=== PATIENT | male | born 1975 | race Caucasian/White ===

== ENCOUNTER 2017-06-20 15:57 | Emergency (ER) | payer BC ==
[2017-06-20 16:45] VITALS: BP 136/93; PULSE 82; RESP 16; TEMP 97.9
[2017-06-20] MEDS ORDERED: IBUPROFEN 600 MG TAB PO STA (17:12)
--- NOTE | 2017-06-20 17:43 | ED ---
Wound/Laceration HPI - General Chief Complaint: Wound/Laceration Stated Complaint: R leg laceration Time Seen by Provider: 06/20/17 17:12 Source: patient Mode of arrival: ambulatory Limitations: no limitations - History of Present Illness Initial Comments: 42-year-old male patient presented to emergency department today for evaluation of an injury to his right lower leg. Patient states couple hours ago he was doing some jesus, states he was carrying a bundle of plywood when one of the pieces of wood struck him in the leg causing an injury. Patient states he did have some bleeding, states area is painful. He was unsure if he needed stitches or not. He denies any difficulty and bleeding. Denies any numbness or tingling to the leg or foot. Denies falling down or any other injuries. Patient denies any headache, neck pain, back pain, chest pain, shortness of breath, dizziness, weakness, abdominal pain, nausea, vomiting, or difficulties with bowel movements or urination. Patient had tetanus vaccine about a year ago. - Related Data Previous Rx's Medication Instructions Recorded Hydrocodone/Acetaminophen [[place] 1 each PO Q4HR PRN #20 tab 04/25/16 5-325] Ibuprofen [Motrin] 800 mg PO Q8HR PRN #30 tab 04/25/16 Cephalexin [Keflex] 500 mg PO Q6HR #20 cap 06/20/17 Allergies Allergy/AdvReac Type Severity Reaction Status Date / Time onion Allergy Nausea & Verified 06/20/17 16:45 Vomiting tramadol HCl [From Ultram] Allergy Confusion Verified 06/20/17 16:45 Review of Systems ROS Statement: Those systems with pertinent positive or pertinent negative responses have been documented in the HPI. ROS Other: All systems not noted in ROS Statement are negative. Past Medical History Past Medical History: No Reported History History of Any Multi-Drug Resistant Organisms: None Reported Past Surgical History: Orthopedic Surgery Additional Past Surgical History / Comment(s): facial/ orbital shoulder rotator cuff Past Psychological History: No Psychological Hx Reported Smoking Status: Never smoker Past Alcohol Use History: Occasional Past Drug Use History: None Reported General Exam Limitations: no limitations General appearance: alert, in no apparent distress Eye exam: Present: normal appearance, PERRL, EOMI. Absent: scleral icterus, conjunctival injection, periorbital swelling Respiratory exam: Present: normal lung sounds bilaterally. Absent: respiratory distress, wheezes, rales, rhonchi, stridor Cardiovascular Exam: Present: regular rate, normal rhythm, normal heart sounds. Absent: systolic murmur, diastolic murmur, rubs, gallop, clicks Extremities exam: Present: full ROM, tenderness (Tenderness surrounding the puncture sites on the anterior right mid lower leg.), normal capillary refill, other (There is a puncture wound to the right mid lower leg. Bleeding is controlled. Skin is otherwise pink, warm, and dry. Cap refill less than 3 seconds. No bony tenderness. Pedal and posttibial pulses are 2+ and intact.). Absent: pedal edema, joint swelling, calf tenderness Neurological exam: Present: alert, oriented X3, CN II-XII intact Psychiatric exam: Present: normal affect, normal mood Skin exam: Present: warm, dry, intact, normal color. Absent: rash Course Vital Signs 06/20/17 16:42 Temperature 97.9 F Pulse Rate 82 Respiratory 16 Rate Blood Pressure 136/93 O2 Sat by Pulse 98 Oximetry Medical Decision Making - Medical Decision Making 42-year-old male patient presented for evaluation of right lower leg injury. Physical examination did reveal a puncture wound to the right lower leg. Area was cleansed and irrigated. X-ray was obtained to rule out foreign body. There is no foreign body evident. The tib-fib were negative for any acute fracture. Patient was put on antibiotics for prevention of infection. He was instructed to follow-up with his primary care physician for recheck in 1-2 days. He is instructed to return here immediately for any new, worsening, or concerning symptoms. He verbalizes understanding and agrees this plan. - Radiology Data Radiology results: report reviewed, image reviewed X-ray tib-fib shows no acute fracture or dislocation the right tibia or fibula. The right knee and ankle joint appears within normal limits. Small amount of gas as possible in the mid calf medially. No radiopaque foreign body is identified. Impression by Dr. Crow shows no radiopaque foreign bodies identified. There could be a small amount of soft tissue gas identified in the medial calf. Disposition Clinical Impression: Puncture wound Disposition: HOME SELF-CARE Condition: Good Instructions: Puncture Wound (ED) Additional Instructions: Keep wound clean and dry. Take antibiotics as directed. Follow-up to primary care physician for recheck in 1-2 days. Return here immediately for any new, worsening, or concerning symptoms. Prescriptions: Cephalexin [Keflex] 500 mg PO Q6HR #20 cap Referrals: Stephen Segura MD [Primary Care Provider] - 1-2 days Time of Disposition: 17:43
--- NOTE | 2017-06-20 18:06 | XR ---
EXAMINATION TYPE: XR tibia fibula RT DATE OF EXAM: 06/20/2017 CLINICAL HISTORY: Possible foreign body with pain. TECHNIQUE: 7 views of the right leg are obtained. COMPARISON: None. FINDINGS: There is no acute fracture or dislocation seen in the right tibia or fibula. The right kn ee and ankle joints appear within normal limits. Small amount of gas is possible in the mid calf medi ally. No radiopaque foreign body is identified. IMPRESSION: No radiopaque foreign bodies identified. There could be a small amount of soft tissue gas identified in the medial calf.
== END 2017-06-20 17:55 | disposition home or self-care (01) ==
LOC: EC 15:57
DX: S81.831A Puncture wound without foreign body, right lower leg, initial encounter (principal); Z88.6 Allergy status to analgesic agent; Z91.018 Allergy to other foods; W22.8XXA Striking against or struck by other objects, initial encounter; Y93.89 Activity, other specified
CPT/HCPCS: 99283

== ENCOUNTER 2018-10-10 08:37 | Emergency (ER) | payer BC ==
[2018-10-10] MEDS ORDERED: SODIUM CHLORIDE 0.9% 1,000 ML IV STA (08:56)
[2018-10-10] MEDS ORDERED: diphenhydrAMINE 50 MG/ML 1 ML VIAL IVP STA (08:57)
[2018-10-10] MEDS ORDERED: METOCLOPRAMIDE 5 MG/ML 2 ML VIAL IVP STA (08:57)
--- NOTE | 2018-10-10 08:58 | ED ---
General Adult HPI - General Chief complaint: Neuro Symptoms/Deficit Stated complaint: headache Time Seen by Provider: 10/10/18 08:46 Source: patient, family, RN notes reviewed, old records reviewed Mode of arrival: wheelchair Limitations: no limitations - History of Present Illness Initial comments: 43-year-old male presenting with chief complaint of severe headache. Patient does have headache history, follows with urology, has headache frequency over proximally 3 monthly. Today's headache is significantly more severe, and different in character from his baseline headache. He does also have history of what patient's describes as thunderclap headaches. No history of aneurysm in this patient he does have history of aneurysm in his family. He is presenting with severe right-sided headache, lethargy. His also noted left -sided facial droop and patient has some left arm weakness as well. No CVA history. Detailed history is difficult secondary to patient's severe headache. It is known that the patient went to bed with a headache, and woke at 7:30 with severe headache and no complaints. - Related Data Home Medications Medication Instructions Recorded Confirmed Butalb/APAP/Caff 50-325-40Mg 1 tab PO Q4H PRN 10/10/18 10/10/18 [Fioricet 50-325-40] Galcanezumab-Gnlm [Emgality] 120 mg SQ Q30D 10/10/18 10/10/18 Maxalt (Unknown Dose) 1 tab PO ONCE 10/10/18 10/10/18 Allergies Allergy/AdvReac Type Severity Reaction Status Date / Time onion AdvReac Nausea & Verified 10/10/18 08:59 Vomiting tramadol HCl [From Ultram] AdvReac Confusion Verified 10/10/18 08:59 Review of Systems ROS Statement: Those systems with pertinent positive or pertinent negative responses have been documented in the HPI. ROS Other: All systems not noted in ROS Statement are negative. Past Medical History Past Medical History: No Reported History Additional Past Medical History / Comment(s): migraines History of Any Multi-Drug Resistant Organisms: None Reported Past Surgical History: Orthopedic Surgery Additional Past Surgical History / Comment(s): facial/ orbital shoulder rotator cuff Past Psychological History: No Psychological Hx Reported Smoking Status: Never smoker Past Alcohol Use History: Occasional Past Drug Use History: None Reported General Exam Limitations: no limitations General appearance: alert, in no apparent distress Head exam: Present: atraumatic, normocephalic Eye exam: Present: normal appearance, PERRL Neck exam: Present: normal inspection Respiratory exam: Present: normal lung sounds bilaterally. Absent: respiratory distress Cardiovascular Exam: Present: regular rate, normal rhythm GI/Abdominal exam: Present: soft. Absent: distended, tenderness Extremities exam: Present: normal inspection, normal capillary refill. Absent: pedal edema Neurological exam: Present: alert, motor sensory deficit (Left upper extremity drift, left-sided facial droop, mild dysarthria) Skin exam: Present: warm, dry, intact. Absent: cyanosis, diaphoretic Course Vital Signs 10/10/18 10/10/18 10/10/18 08:38 08:45 09:00 Temperature 97.8 F Pulse Rate 76 62 57 L Respiratory 18 16 16 Rate Blood Pressure 99/71 158/100 142/99 O2 Sat by Pulse 98 93 L 95 Oximetry 10/10/18 10/10/18 10/10/18 09:15 09:30 09:45 Temperature Pulse Rate 56 L 64 58 L Respiratory 16 16 16 Rate Blood Pressure 147/105 145/125 147/94 O2 Sat by Pulse 99 94 L 98 Oximetry 10/10/18 10/10/18 10:00 10:15 Temperature Pulse Rate 60 64 Respiratory 15 16 Rate Blood Pressure 134/96 141/104 O2 Sat by Pulse 98 100 Oximetry EKG Findings - EKG Comments: EKG Findings:: EKG: Sinus rhythm, first-degree AV block, significant artifact secondary to patient tremor, rate of 63 TN interval 234, QRS duration 86, QTC [address] segment changes, no definitive signs of ischemia Medical Decision Making - Medical Decision Making 43-year-old male history of migraine headache presenting with severe headache, right-sided, with left arm drift and facial droop. Patient is evaluated as a code stroke in the emergency department. CT, CT angiography is obtained. CT negative for intracranial hemorrhage or mass effect, CT angiography is negative for aneurysm, negative for acute bleed or stenosis. Patient given Reglan, Benadryl, and Dilaudid. Chest x-ray obtained, negative for focal pneumonia or acute findings. Patient has normal CBC, normal CMP, negative troponin. I did discuss case with the stroke neurologist Dr. Estrada, CT reviewed, likely atypical migraine, does recommend aspirin. On reevaluation, patient feeling significantly better, focal findings are completely resolved. Patient headache is improved, not as debilitating, able to get a more detailed history. Patient does state that 15 years ago he had severe migraine with concern for CVA and was diagnosed with atypical migraine at that time. He has not had a headache this severe in the past 15 years. He does follow regularly with neurology. He is feeling better and has a nonfocal neurologic exam. He is ready for discharge, will follow-up with his neurologist as an outpatient. Will take 81 mg aspirin daily. Return with worsening or changing symptoms. - Lab Data Result diagrams: 10/10/18 08:55 10/10/18 08:55 Lab Results 10/10/18 10/10/18 10/10/18 Range/Units 08:55 08:55 08:55 WBC 5.6 (3.8-10.6) k/uL RBC 5.63 (4.30-5.90) m/uL Hgb 16.5 (13.0-17.5) gm/dL Hct 49.2 (39.0-53.0) % MCV 87.4 (80.0-100.0) fL MCH 29.2 (25.0-35.0) pg MCHC 33.5 (31.0-37.0) g/dL RDW 12.9 (11.5-15.5) % Plt Count 296 (150-450) k/uL Neutrophils % 50 % Lymphocytes % 36 % Monocytes % 9 % Eosinophils % 2 % Basophils % 1 % Neutrophils # 2.8 (1.3-7.7) k/uL Lymphocytes # 2.0 (1.0-4.8) k/uL Monocytes # 0.5 (0-1.0) k/uL Eosinophils # 0.1 (0-0.7) k/uL Basophils # 0.0 (0-0.2) k/uL PT 10.1 (9.0-12.0) sec INR 0.9 (<1.2) APTT 24.9 (22.0-30.0) sec Sodium 142 (137-145) mmol/L Potassium 4.3 (3.5-5.1) mmol/L Chloride 105 (98-107) mmol/L Carbon Dioxide 27 (22-30) mmol/L Anion Gap 10 mmol/L BUN 18 (9-20) mg/dL Creatinine 1.02 (0.66-1.25) mg/dL Est GFR (CKD-EPI)AfAm >90 (>60 ml/min/1.73 sqM) Est GFR (CKD-EPI)NonAf >90 (>60 ml/min/1.73 sqM) Glucose 108 H (74-99) mg/dL Calcium 9.6 (8.4-10.2) mg/dL Total Bilirubin 1.2 (0.2-1.3) mg/dL AST 38 (17-59) U/L ALT 73 H (21-72) U/L Alkaline Phosphatase 68 (38-126) U/L Total Creatine Kinase (55-170) U/L CK-MB (CK-2) (0.0-2.4) ng/mL CK-MB (CK-2) Rel Index Troponin I (0.000-0.034) ng/mL Total Protein 7.8 (6.3-8.2) g/dL Albumin 4.5 (3.5-5.0) g/dL 10/10/18 Range/Units 08:58 WBC (3.8-10.6) k/uL RBC (4.30-5.90) m/uL Hgb (13.0-17.5) gm/dL Hct (39.0-53.0) % MCV (80.0-100.0) fL MCH (25.0-35.0) pg MCHC (31.0-37.0) g/dL RDW (11.5-15.5) % Plt Count (150-450) k/uL Neutrophils % % Lymphocytes % % Monocytes % % Eosinophils % % Basophils % % Neutrophils # (1.3-7.7) k/uL Lymphocytes # (1.0-4.8) k/uL Monocytes # (0-1.0) k/uL Eosinophils # (0-0.7) k/uL Basophils # (0-0.2) k/uL PT (9.0-12.0) sec INR (<1.2) APTT (22.0-30.0) sec Sodium (137-145) mmol/L Potassium (3.5-5.1) mmol/L Chloride (98-107) mmol/L Carbon Dioxide (22-30) mmol/L Anion Gap mmol/L BUN (9-20) mg/dL Creatinine (0.66-1.25) mg/dL Est GFR (CKD-EPI)AfAm (>60 ml/min/1.73 sqM) Est GFR (CKD-EPI)NonAf (>60 ml/min/1.73 sqM) Glucose (74-99) mg/dL Calcium (8.4-10.2) mg/dL Total Bilirubin (0.2-1.3) mg/dL AST (17-59) U/L ALT (21-72) U/L Alkaline Phosphatase (38-126) U/L Total Creatine Kinase 99 (55-170) U/L CK-MB (CK-2) 0.4 (0.0-2.4) ng/mL CK-MB (CK-2) Rel Index 0.4 Troponin I <0.012 (0.000-0.034) ng/mL Total Protein (6.3-8.2) g/dL Albumin (3.5-5.0) g/dL Disposition Clinical Impression: Atypical migraine Disposition: HOME SELF-CARE Condition: Fair Instructions (If sedation given, give patient instructions): Migraine Headache (ED), Acute Headache (ED) Is patient prescribed a controlled substance at d/c from ED?: No Referrals: Stephen Segura MD [Primary Care Provider] - 1-2 days Nahun Lambert DO [STAFF PHYSICIAN] - 1-2 days Decision to Admit Reason: Admit from EC Decision Date: 10/10/18 Decision Time: 11:28
--- NOTE | 2018-10-10 09:20 | CT ---
EXAMINATION TYPE: CT brain wo con DATE OF EXAM: 10/10/2018 COMPARISON: 06/17/2010 HISTORY: Code stroke. Neuro deficits. Unenhanced CT of the brain was performed. The ventricles, basal cisterns and sulci overlying the cerebral convexities demonstrate a normal appe arance. There is no evidence for intracranial hemorrhage or sulcal effacement. No mass effects are seen. Osseous calvarium is intact. If symptoms persist consider MRI as clinically warranted. IMPRESSION: 1. No acute intracranial process is seen at this time.
[2018-10-10 09:40] LABS: Basophils % (A) 1 %; Eosinophils # (A) 0.1 k/uL (0-0.7); Eosinophils % (A) 2 %; HCT 49.2 % (39.0-53.0); HGB 16.5 gm/dL (13.0-17.5); Lymphocytes % (A) 36 %; MCH 29.2 pg (25.0-35.0); MCHC 33.5 g/dL (31.0-37.0); MCV 87.4 fL (80.0-100.0); Mean Platelet Volume 6.4; Monocytes # (A) 0.5 k/uL (0-1.0); Monocytes % (A) 9 %; Neutrophils # (A) 2.8 k/uL (1.3-7.7); Neutrophils % (A) 50 %; Platelet Count 296 k/uL (150-450); RBC 5.63 m/uL (4.30-5.90); RDW 12.9 % (11.5-15.5); WBC 5.6 k/uL (3.8-10.6)
[2018-10-10 09:42] VITALS: PULSE 64
[2018-10-10 09:45] LABS: INR 0.9 (<1.2); Partial Thromboplastin Time 24.9 sec (22.0-30.0); Prothrombin Time 10.1 sec (9.0-12.0)
[2018-10-10] MEDS ORDERED: HYDROmorphone 1 MG/ML 1 ML SYRINGE IVP STA (09:46)
[2018-10-10 09:49] LABS: ALT 73 U/L (21-72); AST 38 U/L (17-59); Albumin 4.5 g/dL (3.5-5.0); Alkaline Phosphatase 68 U/L (38-126); Anion Gap 10 mmol/L; Blood Urea Nitrogen 18 mg/dL (9-20); Calcium 9.6 mg/dL (8.4-10.2); Carbon Dioxide 27 mmol/L (22-30); Chloride 105 mmol/L (98-107); Glucose 108 mg/dL (74-99); Potassium 4.3 mmol/L (3.5-5.1); Sodium 142 mmol/L (137-145); Total Bilirubin 1.2 mg/dL (0.2-1.3); Total Protein 7.8 g/dL (6.3-8.2)
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
[2018-10-10 09:56] LABS: Creatine Kinase 99 U/L (55-170)
[2018-10-10 10:09] LABS: Creatine Kinase MB 0.4 ng/mL (0.0-2.4); Troponin I <0.012 ng/mL (0.000-0.034)
--- NOTE | 2018-10-10 10:11 | XR ---
EXAMINATION TYPE: XR chest 1V portable DATE OF EXAM: 10/10/2018 COMPARISON: 06/17/2010 HISTORY: Chest pain TECHNIQUE: Single frontal view of the chest is obtained. FINDINGS: There is no focal air space opacity, pleural effusion, or pneumothorax seen. The cardiac silhouette size is within normal limits. The osseous structures are intact. IMPRESSION: 1. No acute process.
[2018-10-10 11:35] VITALS: BP 128/97; RESP 18
[2018-10-10 13:38] VITALS: TEMP 98
== END 2018-10-10 11:32 | disposition home or self-care (01) ==
LOC: EC 08:37
DX: G43.009 Migraine without aura, not intractable, without status migrainosus (principal); R29.810 Facial weakness; R47.1 Dysarthria and anarthria; R53.83 Other fatigue; Z88.5 Allergy status to narcotic agent; Z91.018 Allergy to other foods; Z79.899 Other long term (current) drug therapy; Z98.890 Other specified postprocedural states; Z82.49 Family history of ischemic heart disease and other diseases of the circulatory system
CPT/HCPCS: 36415; 93005; 80053; 82550; 82553; 84484; 85025; 85610; 85730; 71045; 70496; 70450; 70498; 99285; 96374; 96375 ×2; 96361; J1200; J2765; J1170; Q9967

== ENCOUNTER → 2018-12-23 | Outpatient (CLI) | payer BC ==
--- NOTE | 2018-12-23 11:42 | CT ---
EXAMINATION TYPE: CT angio chest DATE OF EXAM: 12/23/2018 COMPARISON: None HISTORY: Hypertension, Family history of heart disease/aneurysm CT DLP: 1019 mGycm CONTRAST: CTA thoracic aorta with 3-D reconstruction is performed and without and with IV Contrast, patient inj ected with 100 ml mL of Isovue 370. Contrast CTA of the thoracic aorta was performed from the lung apex through the upper abdomen. 3D re construction imaging obtained at a separate workstation. CT Chest: THORACIC AORTA: No evidence for thoracic aortic aneurysm. Mild atheromatous changes seen. There is n o evidence for dissection or periaortic collection. LUNGS: The lungs are clear and free of infiltrate or atelectasis. No pulmonary nodule or mass is det ected. No pleural effusion or CT evidence of interstitial lung disease. MEDIASTINUM: No evidence for mediastinal hematoma. The heart is not enlarged. No evidence for med iastinal mass or adenopathy. HILAR STRUCTURES: No evidence for mass. No hilar adenopathy is appreciated. OTHER: No significant abnormality. IMPRESSION- No evidence for thoracic aortic aneurysm or any other significant abnormality.
== END | disposition home or self-care (01) ==
LOC: RADCTMAIN 07:01
PROVIDERS: ATTEND Internal Medicine Cardiovascular Disease
DX: I10 Essential (primary) hypertension (principal); Z82.49 Family history of ischemic heart disease and other diseases of the circulatory system
CPT/HCPCS: 71275; Q9967

== ENCOUNTER → 2019-11-10 | Outpatient (CLI) | payer BC ==
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
== END | disposition home or self-care (01) ==
LOC: RADMRIMAIN 19:11
PROVIDERS: ATTEND Psychiatry & Neurology Neurology
DX: R51 Headache (principal); R47.81 Slurred speech; R53.1 Weakness; R11.0 Nausea; R26.81 Unsteadiness on feet; J32.9 Chronic sinusitis, unspecified
CPT/HCPCS: 70544; 70549; 70553; A9585

== ENCOUNTER 2020-09-22 16:21 | Emergency (ER) | payer OTHER, BC ==
[2020-09-22 16:29] VITALS: TEMP 97.5
[2020-09-22] MEDS ORDERED: Acetaminophen-Codeine 300-30mg TAB PO STA (16:44)
[2020-09-22] MEDS ORDERED: LIDOCAINE 1% INJ 10MG/ML (20 ML MDV) SQ ONE (16:44)
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
--- NOTE | 2020-09-22 17:05 | XR ---
EXAMINATION TYPE: XR hand complete RT DATE OF EXAM: 09/22/2020 COMPARISON: NONE HISTORY: Pain. Injury. TECHNIQUE: 3 views FINDINGS: Metacarpals appear intact. I see no fracture nor dislocation. Carpal bones are intact. Radi ocarpal joint appears normal. IMPRESSION: Negative right hand exam. No fracture seen.
[2020-09-22 17:56] VITALS: BP 127/79; PULSE 67; RESP 16
== END 2020-09-22 17:59 | disposition home or self-care (01) ==
LOC: EC 16:21
DX: S61.411A Laceration without foreign body of right hand, initial encounter (principal); Z91.018 Allergy to other foods; Z88.6 Allergy status to analgesic agent; G43.909 Migraine, unspecified, not intractable, without status migrainosus; Z79.899 Other long term (current) drug therapy; V47.5XXA Car driver injured in collision with fixed or stationary object in traffic accident, initial encounter; Y92.481 Parking lot as the place of occurrence of the external cause; Y93.89 Activity, other specified
CPT/HCPCS: 73130; 99284; 12001; J2001

== ENCOUNTER 2021-05-01 14:27 | Emergency (ER) | payer BC, OTHER ==
[2021-05-01 16:23] VITALS: RESP 18
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
--- NOTE | 2021-05-01 17:04 | XR ---
PROCEDURE: XR femur LT - 4V DATE AND TIME: 05/01/2021 4:57 PM CLINICAL INDICATION: Pain; crush injury TECHNIQUE: Department protocol COMPARISON: None FINDINGS: There is no fracture or malalignment. The soft tissues are unremarkable. IMPRESSION: No acute process.
[2021-05-01 17:41] VITALS: BP 128/83; PULSE 71; TEMP 98.8
== END 2021-05-01 17:17 | disposition home or self-care (01) ==
LOC: EC 14:27
DX: S80.12XA Contusion of left lower leg, initial encounter (principal); Z88.1 Allergy status to other antibiotic agents; W20.8XXA Other cause of strike by thrown, projected or falling object, initial encounter
CPT/HCPCS: 99284

== ENCOUNTER → 2024-08-02 | Outpatient (CLI) | payer OTHER ==
--- NOTE | 2024-08-02 15:25 | XR ---
EXAMINATION TYPE: XR ankle complete LT, XR tibia fibula LT, XR foot complete LT DATE OF EXAM: 08/02/2024 2:41 PM COMPARISON: None CLINICAL INDICATION: Male, 49 years old with history of M79.662 PAIN IN LEFT LOWER LEG S93.402A S93.6 02A; [facility], pain TECHNIQUE: XR ankle complete LT, XR tibia fibula LT, XR foot complete LT; 2 views of the leg 3 views of the foot 3 views of the ankle FINDINGS: There is no evidence of acute osseous pathology. No evidence of subluxation or dislocation. Kager's fat pad is intact. Mild soft tissue swelling around the ankle. No radiopaque foreign bodies are ident ified. The tibia and fibula and bones of the foot appear intact. IMPRESSION: 1. No evidence of acute fracture. 2. Subcutaneous swelling around the ankle likely secondary to underlying soft tissue injury. [facility], , 08/02/2024 3:22 PM
== END | disposition home or self-care (01) ==
LOC: RADXRMAIN 14:25
PROVIDERS: ATTEND Emergency Medicine
DX: S93.402A Sprain of unspecified ligament of left ankle, initial encounter (principal); S93.602A Unspecified sprain of left foot, initial encounter; M25.473 Effusion, unspecified ankle

== ENCOUNTER → 2024-08-09 | Outpatient (CLI) | payer OTHER ==
--- NOTE | 2024-08-09 11:24 | XR ---
EXAMINATION TYPE: XR ankle complete LT, XR tibia fibula LT, XR foot complete LT DATE OF EXAM: 08/09/2024 11:10 AM COMPARISON: None CLINICAL INDICATION: Male, 49 years old with history of M79.662 PAIN IN LOWER LEFT LEG, pain TECHNIQUE: XR ankle complete LT, XR tibia fibula LT, XR foot complete LT; 3 views of the ankle, 2 views of the tibia and fibula 3 views of the foot, FINDINGS: There is no evidence of acute osseous pathology. No evidence of subluxation or dislocation. Kager's fat pad is intact. Mild soft tissue swelling around the ankle. No radiopaque foreign bodies are ident ified. The tibia and fibula appear intact. IMPRESSION: There remains no evidence of fracture. There may be mild soft tissue swelling around the ankle. [facility], , 08/09/2024 11:21 AM
== END | disposition home or self-care (01) ==
LOC: RADXRMAIN 10:51
PROVIDERS: ATTEND Emergency Medicine
DX: S93.402D Sprain of unspecified ligament of left ankle, subsequent encounter (principal); S93.602D Unspecified sprain of left foot, subsequent encounter; X58.XXXD Exposure to other specified factors, subsequent encounter

== ENCOUNTER → 2024-08-21 | Outpatient (CLI) | payer OTHER ==
--- NOTE | 2024-08-29 08:54 | MR ---
EXAMINATION TYPE: MR ankle LT wo con, MR foot LT wo con DATE OF EXAM: 08/21/2024 10:15 PM COMPARISON: Radiograph 08/09/2024 CLINICAL INDICATION: Male, 49 years old with history of S93.402D, S93.602D, Left Lower Odw-Picav-Ggzy pain and swelling since patient twisted ankle/foot stepping in a trench and he heard a snap TECHNIQUE: Multiplanar, multisequence images of the ankle and foot were obtained without IV contrast. FINDINGS: ANKLE: Generalized soft tissue swelling especially overlying the medial and lateral aspects and extending in to the medial hindfoot and dorsolateral midfoot. The talar dome and subtalar joint are intact. Small effusion in the tibiotalar and posterior subtalar joints. No acute or healing fracture is seen. Smooth delineation to the Achilles tendon with trace retrocalcaneal bursal effusion. The origin of th e plantar fascia is intact. Preserved signal within the sinus Tarsi. The tarsal tunnel is clear. The syndesmosis and anterior extensor tendons appear intact. The ATFL, PTFL, and CFL appear intact. There is moderate fluid along the peroneal tendons with a longitudinal split tear of peroneus brevis extending from the malleolus spanning just under 2 cm, refer to axial image 23. The medial flexor tendons and deltoid spring ligament complex appear intact. Minimal edema within the flexor hallucis longus muscle belly. FOOT: There is moderate to severe osteoarthritic change at the first MTP joint. Prominent reactive subchond ral marrow signal change and some irregularity of the subchondral bone along the metatarsal head. No acute or healing fracture. The Lisfranc ligament is visualized and intact. No other significant soft tissue abnormality is seen. IMPRESSION: ANKLE: 1. Generalized subcutaneous soft tissue swelling. No acute or healing fracture is seen. 2. Longitudinal split tear of the peroneus brevis extending from the malleolus down, spanning just un alesha 2 cm. Associated tenosynovitis. 3. Some minimal edema within the flexor hallucis longus muscle belly could be reactive to altered bio mechanics or could represent a mild muscle strain. FOOT: 4. Moderate to severe focal osteoarthritic change at the first MTP joint. 5. Otherwise, no acute abnormality is identified. [facility], , 08/29/2024 8:51 AM
== END | disposition home or self-care (01) ==
LOC: RADMRIMAIN 20:45
PROVIDERS: ATTEND Emergency Medicine
DX: S93.402D Sprain of unspecified ligament of left ankle, subsequent encounter (principal); S93.602D Unspecified sprain of left foot, subsequent encounter; M65.972 Unspecified synovitis and tenosynovitis, left ankle and foot; R60.0 Localized edema

== ENCOUNTER 2024-09-04 02:59 | Emergency (ER) | payer BC ==
[2024-09-04 03:06] VITALS: BP 185/124; PULSE 88; RESP 18; TEMP 98.1
--- NOTE | 2024-09-04 03:40 | ED ---
Extremity Problem HPI - General Chief complaint: Extremity Problem,Nontraumatic Stated complaint: left leg tingling Time Seen by Provider: 09/04/24 03:40 Source: patient Mode of arrival: ambulatory Limitations: no limitations - History of Present Illness Initial comments: This is a 49-year-old male presenting to the emergency department for complaint of left leg paresthesias that have been worsening over the past 2 hours. Patient states that he had an injury to his left foot on 08/01/2024 resulting in ligamentous injury and was informed by senior talent acquisition specialist to report to emergency department if he has worsening pain or paresthesias. States that he is noticed edema and erythema of the left calf. He denies chest pain, shortness of breath, or palpitations. - Related Data Home Medications Medication Instructions Recorded Confirmed Galcanezumab-Gnlm [Emgality] 120 mg SQ Q30D 10/10/18 09/22/20 Lisinopril-Hctz 10-12.5 mg 1 tab PO DAILY 09/22/20 09/22/20 [Zestoretic 10-12.5] OXcarbazepine [Trileptal] 75 - 150 mg PO HS 09/22/20 09/22/20 Ubrogepant [Ubrelvy] 50 mg PO BID PRN 09/22/20 09/22/20 Allergies Allergy/AdvReac Type Severity Reaction Status Date / Time onion AdvReac Nausea & Verified 09/04/24 03:06 Vomiting tramadol HCl [From Ultram] AdvReac Confusion Verified 09/04/24 03:06 Review of Systems ROS Statement: Those systems with pertinent positive or pertinent negative responses have been documented in the HPI. ROS Other: All systems not noted in ROS Statement are negative. Past Medical History Past Medical History: No Reported History Additional Past Medical History / Comment(s): migraines History of Any Multi-Drug Resistant Organisms: None Reported Past Surgical History: Orthopedic Surgery Additional Past Surgical History / Comment(s): facial/ orbital shoulder rotator cuff Past Psychological History: No Psychological Hx Reported Smoking Status: Never smoker Past Alcohol Use History: Rare Past Drug Use History: Marijuana General Exam - General Exam Comments Initial Comments: Visual Physical Exam Vital signs reviewed General: Well-appearing, nontoxic, no acute distress. Head: Normocephalic, atraumatic Eyes: PERRLA, EOMI ENT: Airway patent Chest: Nonlabored breathing Skin: No visual rash, normal skin tone Neuro: Alert and oriented 3 Musculoskeletal: No gross abnormalities Limitations: no limitations Course Vital Signs 09/04/24 03:03 Temperature 98.1 F Pulse Rate 88 Respiratory 18 Rate Blood Pressure 185/124 O2 Sat by Pulse 99 Oximetry Medical Decision Making - Medical Decision Making I completed the quick note portion of this chart signed Yocasta Lindsay PA-C Patient is informed that ultrasound will be completed in the next few hours however patient is requesting discharge at this time stating that he will return back to the emergency department being for further evaluation. Comprehensive exam was unable to to be completed of the patient denies he was in the waiting room during triage. Disposition Clinical Impression: Left leg paresthesias, Calf pain Disposition: HOME SELF-CARE Condition: Stable Additional Instructions: Please return to the Emergency Department if symptoms worsen or any other concerns. Is patient prescribed a controlled substance at d/c from ED?: No Referrals: None,Stated [Primary Care Provider] - 1-2 days Time of Disposition: 03:40
== END 2024-09-04 03:43 | disposition home or self-care (01) ==
LOC: EC 02:59
DX: M79.662 Pain in left lower leg (principal); Z91.018 Allergy to other foods; Z88.8 Allergy status to other drugs, medicaments and biological substances
CPT/HCPCS: 99283

== ENCOUNTER 2024-09-04 07:31 | Emergency (ER) | payer BC ==
[2024-09-04 07:55] VITALS: TEMP 98.3
--- NOTE | 2024-09-04 08:39 | US ---
EXAMINATION TYPE: US venous doppler duplex LE LT DATE OF EXAM: 09/04/2024 8:17 AM COMPARISON: None CLINICAL INDICATION: Male, 49 years old with history of LLE pain, swelling, RO DVT; Pt states left le g cramping, no known prior DVT, not on blood thinners , Pain TECHNIQUE: The lower extremity deep venous system is examined utilizing real time linear array sonog sukhjinder with graded compression, color doppler sonography, and spectral doppler. SIDE PERFORMED: Left FINDINGS: VESSELS IMAGED: Common Femoral Vein Deep Femoral Vein Greater Saphenous Vein * Femoral Vein Popliteal Vein Small Saphenous Vein * Proximal Calf Veins (* superficial vessels) Left Leg: Negative for DVT, Color Doppler imaging shows patency of the vessels. Spectral waveforms a re within normal limits. IMPRESSION: No evidence for DVT within the left lower extremity imaged from the groin to the upper calf. [facility], , 09/04/2024 8:36 AM
--- NOTE | 2024-09-04 08:52 | ED ---
General Adult HPI - General Chief complaint: Extremity Problem,Nontraumatic Stated complaint: L Foot Injury Time Seen by Provider: 09/04/24 07:50 Source: patient, RN notes reviewed, old records reviewed Mode of arrival: ambulatory Limitations: no limitations - History of Present Illness Initial comments: This is a 49-year-old male who presents to the emergency department complaining of having ligamentous damage to his ankle and he is in a boot. Patient states as of late he has been having some calf spasm and some tingling in his toes. So he came into the emergency department last night however ultrasounds not here so he came back this morning. Patient denies any swelling to the area. Patient denies any redness. Patient denies any edema. Patient denies any difficulty breathing shortness of breath. - Related Data Home Medications Medication Instructions Recorded Confirmed Galcanezumab-Gnlm [Emgality] 120 mg SQ Q30D 10/10/18 09/22/20 Lisinopril-Hctz 10-12.5 mg 1 tab PO DAILY 09/22/20 09/22/20 [Zestoretic 10-12.5] OXcarbazepine [Trileptal] 75 - 150 mg PO HS 09/22/20 09/22/20 Ubrogepant [Ubrelvy] 50 mg PO BID PRN 09/22/20 09/22/20 Allergies Allergy/AdvReac Type Severity Reaction Status Date / Time onion AdvReac Nausea & Verified 09/04/24 07:55 Vomiting tramadol HCl [From Ultram] AdvReac Confusion Verified 09/04/24 07:55 Review of Systems ROS Statement: Those systems with pertinent positive or pertinent negative responses have been documented in the HPI. ROS Other: All systems not noted in ROS Statement are negative. Past Medical History Past Medical History: No Reported History Additional Past Medical History / Comment(s): migraines History of Any Multi-Drug Resistant Organisms: None Reported Past Surgical History: Orthopedic Surgery Additional Past Surgical History / Comment(s): facial/ orbital shoulder rotator cuff Past Psychological History: No Psychological Hx Reported Smoking Status: Never smoker Past Alcohol Use History: Rare Past Drug Use History: Marijuana General Exam - General Exam Comments Initial Comments: GENERAL: Patient is well-developed and well-nourished. Patient is nontoxic and well- hydrated and is in no acute distress. ENT: Neck is soft and supple. No significant lymphadenopathy is noted. Oropharynx is clear. Moist mucous membranes. Neck has full range of motion without eliciting any pain. EYES: The sclera were anicteric and conjunctiva were pink and moist. Extraocular movements were intact and pupils were equal round and reactive to light. Eyelids were unremarkable. SKIN: Skin is clear with no lesions or rashes and otherwise unremarkable. NEUROLOGIC: Patient is alert and oriented x3. Cranial nerves II through XII are grossly intact. Motor and sensory are also intact. Normal speech, volume and content. Symmetrical smile. MUSCULOSKELETAL: Normal extremities with adequate strength and full range of motion. No lower extremity swelling or edema. No calf tenderness. LYMPHATICS: No significant lymphadenopathy is noted PSYCHIATRIC: Normal psychiatric evaluation. Limitations: no limitations Course Vital Signs 09/04/24 07:49 Temperature 98.3 F Pulse Rate 87 Respiratory 22 Rate Blood Pressure 163/117 O2 Sat by Pulse 98 Oximetry Medical Decision Making - Medical Decision Making Was pt. sent in by a medical professional or institution (, PA, PRINCIPAL EXAMINER, urgent care, hospital, or senior living...) When possible be specific @ -No Did you speak to anyone other than the patient for history (EMS, parent, family, police, friend...)? What history was obtained from this source @ -No Did you review nursing and triage notes (agree or disagree)? Why? @ -I reviewed and agree with nursing and triage notes Were old charts reviewed (outside hosp., previous admission, EMS record, old EKG, old radiological studies, urgent care reports/EKG's, senior living records)? Report findings @ -No old charts were reviewed Differential Diagnosis? @ -Muscular cramp, muscle strain, DVT, this is not an all-inclusive list EKG interpreted by me (3pts min.). @ -As above X-rays interpreted by me (1pt min.). @ -None done CT interpreted by me (1pt min.). @ -None done U/S interpreted by me (1pt. min.). @ -Ultrasound shows no DVT What testing was considered but not performed or refused? (CT, X-rays, U/S, labs)? Why? @ -None What meds were considered but not given or refused? Why? @ -None Did you discuss the management of the patient with other professionals (professionals i.e. , PA, PRINCIPAL EXAMINER, lab, RT, psych nurse, high school social science teacher, marine plumber, teacher, co founder and chief strategy officer, renal case manager)? Give summary @ -No Was smoking cessation discussed for >3mins.? @ -No Was critical care preformed (if so, how long)? @ -No Were there social determinants of health that impacted care today? How? (Homelessness, low income, unemployed, alcoholism, drug addiction, transportation, low edu. Level, literacy, decrease access to med. care, [facility], rehab)? @ -No Was there de-escalation of care discussed even if they declined (Discuss DNR or withdrawal of care, Hospice)? DNR status @ -No What co-morbidities impacted this encounter? (DM, HTN, Smoking, COPD, CAD, Cancer, CVA, ARF, Chemo, Hep., AIDS, mental health diagnosis, sleep apnea, morbid obesity)? @ -None Was patient admitted / discharged? Hospital course, mention meds given and route, prescriptions, significant lab abnormalities, going to OR and other pertinent info. @ -Patient had ultrasound did not show any DVT patient had no swelling or edema to the leg patient had no erythema to the leg patient had normal sensation torres chirag he did state his toes felt tingly but he still had sensation. Patient will follow-up with orthopedics. Undiagnosed new problem with uncertain prognosis? @ -No Drug Therapy requiring intensive monitoring for toxicity (Heparin, Nitro, Insulin, Cardizem)? @ -No Were any procedures done? @ -No Diagnosis/symptom? @ -Muscle cramp Acute, or Chronic, or Acute on Chronic? @ -Acute Uncomplicated (without systemic symptoms) or Complicated (systemic symptoms)? @ -On complicated Side effects of treatment? @ -No Exacerbation, Progression, or Severe Exacerbation? @ -No Poses a threat to life or bodily function? How? (Chest pain, [place], [place], pneumonia, PE, COPD, DKA, ARF, appy, cholecystitis, CVA, Diverticulitis, Homicidal, Suicidal, threat to staff... and all critical care pts) @ -No Diagnosis/symptom? @ -Paresthesia Acute, or Chronic, or Acute on Chronic? @ -Acute Uncomplicated (without systemic symptoms) or Complicated (systemic symptoms)? @ -Uncomplicated Side effects of treatment? @ -None Exacerbation, Progression, or Severe Exacerbation] @ -No Poses a threat to life or bodily function? @ -No Disposition Clinical Impression: Muscle cramp, Paresthesias Disposition: HOME SELF-CARE Condition: Good Additional Instructions: Patient should follow-up with orthopedics Is patient prescribed a controlled substance at d/c from ED?: No Referrals: Stephen Segura MD [Primary Care Provider] - 1-2 days Time of Disposition: 08:55
[2024-09-04 09:08] VITALS: BP 154/92; PULSE 77; RESP 18
== END 2024-09-04 09:07 | disposition home or self-care (01) ==
LOC: EC 07:31
DX: R25.2 Cramp and spasm (principal); R20.2 Paresthesia of skin; Z91.018 Allergy to other foods; Z88.6 Allergy status to analgesic agent
CPT/HCPCS: 99283